=== PATIENT | male | born 1975 | race Caucasian/White ===

== ENCOUNTER 2017-09-26 11:09 | Emergency (ER) | payer BC ==
[2017-09-26] MEDS ORDERED: Lidocaine 1% (PF) 30 ML VIAL ONE (11:31)
--- NOTE | 2017-09-26 12:06 | RAD ---
LEFT MIDDLE FINGER 3 VIEWS: Date: 09/26/17 HISTORY: Finger injury. FINDINGS: Soft tissue laceration of the tuft is apparent. Tiny radiodensities at the laceration may represent m etallic foreign bodies or iodine liquid. No acute fracture or dislocation apparent. Joint spaces are preserved. IMPRESSION: Extensive soft tissue laceration tuft left middle finger. POS: [facility]
== END 2017-09-26 12:42 | disposition home or self-care (01) ==
LOC: ERS 11:09
DX: S68.123A Partial traumatic metacarpophalangeal amputation of left middle finger, initial encounter (principal); W23.0XXA Caught, crushed, jammed, or pinched between moving objects, initial encounter
CPT/HCPCS: 12002; J2001